=== PATIENT | male | born 1980 | race Caucasian/White ===

== ENCOUNTER 2020-06-28 04:08 | Observation (INO) ==
[2020-06-28] MEDS ORDERED: Ondansetron 4 MG/2 ML VIAL IVP PRN (06:29)
[2020-06-28] MEDS ORDERED: Naloxone 0.4 MG/ML INJ IVP PRN (06:29)
[2020-06-28] MEDS ORDERED: 0.9 % Sodium Chloride 1,000 ML IVC SCH (06:30)
[2020-06-28] MEDS: Cholecalciferol (D-3) 1,000 UNIT (25MCG) TABLET PO SCH (09:34)
[2020-06-28] MEDS: Tolterodine LA (24 HR) 4 MG CAP.ER.24H PO SCH (09:34)
[2020-06-28] MEDS: clonazePAM 1 MG TABLET PO SCH ×2 (09:34→22:18)
[2020-06-28] MEDS: ARIPiprazole 2 MG TABLET PO SCH (09:34)
[2020-06-28] MEDS: Baclofen 10 MG TABLET PO SCH ×3 (09:34→22:18)
[2020-06-28] MEDS: Gabapentin 400 MG CAPSULE PO SCH ×3 (09:35→19:57)
[2020-06-28] MEDS: ALPRAZolam 1 MG TABLET PO SCH ×2 (09:35→22:18)
[2020-06-28] MEDS: Multivit/Ca/Min/Fe/FA 1 TAB TABLET PO SCH (09:35)
[2020-06-28] MEDS: cefTRIAXone 1,000 MG in Water for inj. (sterile) 10 ML IVP SCH (09:35)
[2020-06-28] MEDS ORDERED: Acetaminophen 325 MG TABLET PO PRN (14:15)
[2020-06-28 16:34] LABS: Basophils % 0.4 %; Eosinophils # 0.2 K/mcL (0.0-0.6); Eosinophils % 1.4 %; Hematocrit 38.4 % (37.5-50.1); Hemoglobin 11.6 g/dL (12.9-16.9); Immature Granulocytes % 0.4 % (0-4); Lymphocytes % 28.2 %; Mean Corpuscular HGB Conc 30.2 g/dL (31.6-35.5); Mean Corpuscular Hemoglobin 26.5 pg (28.0-33.3); Mean Corpuscular Volume 87.7 fL (83.0-100.0); Mean Platelet Volume 9.9 fL (9.4-12.4); Monocytes # 0.9 K/mcL (0.0-1.3); Monocytes % 8.2 %; Neutrophils # 6.6 K/mcL (1.6-8.9); Platelet Count 219 K/mcL (140-400); Red Blood Count 4.38 M/mcL (4.19-5.50); Segmented Neutrophils % 61.4 %; White Blood Count 10.7 K/mcL (4.3-11.1)
[2020-06-28 16:52] LABS: BUN/Creatinine Ratio 47 (6-26); Blood Urea Nitrogen 15 mg/dL (6-20); Calcium 8.8 mg/dL (8.6-10.3); Carbon Dioxide 23 mEq/L (23-29); Chloride 109 mEq/L (98-107); Glucose 86 mg/dL (70-105); Magnesium 1.8 mg/dL (1.6-2.6); Osmolality,Calculated 286 (280-300); Phosphorous 3.5 mg/dL (2.7-4.5); Potassium 3.6 mEq/L (3.5-5.1); Sodium 138 mEq/L (136-145); eGFR For African Americans > 60 (> 60); eGFR For Non-African Americans > 60 (> 60)
[2020-06-28] MEDS: *HR* Heparin 5,000 UNIT/ML VIAL SQ SCH (19:57)
[2020-06-28] MEDS: Melatonin 3 MG TABLET PO SCH (22:18)
[2020-06-29 01:52] LABS: Hematocrit 34.5 % (37.5-50.1); Hemoglobin 10.9 g/dL (12.9-16.9); Mean Corpuscular HGB Conc 31.6 g/dL (31.6-35.5); Mean Corpuscular Hemoglobin 27.2 pg (28.0-33.3); Mean Platelet Volume 10.4 fL (9.4-12.4); Platelet Count 212 K/mcL (140-400); Red Blood Count 4.01 M/mcL (4.19-5.50); Red Cell Distribution Width 15.2 % (11.5-14.5); White Blood Count 8.5 K/mcL (4.3-11.1)
[2020-06-29 02:10] LABS: Magnesium 1.8 mg/dL (1.6-2.6); Phosphorous 3.4 mg/dL (2.7-4.5)
[2020-06-29 02:13] LABS: Alanine Aminotransferase 52 Units/L (7-52); Albumin 3.3 g/dL (3.5-5.7); Albumin/Globulin Ratio 1.2 (1.1-2.2); Alkaline Phosphatase 82 Units/L (34-104); Aspartate Amino Transferase 36 Units/L (13-39); BUN/Creatinine Ratio 39 (6-26); Bilirubin,Total 0.4 mg/dL (0.3-1.0); Blood Urea Nitrogen 15 mg/dL (6-20); Calcium 8.6 mg/dL (8.6-10.3); Carbon Dioxide 24 mEq/L (23-29); Chloride 109 mEq/L (98-107); Globulin 2.8 g/dL (2.4-3.5); Glucose 86 mg/dL (70-105); Osmolality,Calculated 288 (280-300); Potassium 3.8 mEq/L (3.5-5.1); Sodium 139 mEq/L (136-145); Total Protein 6.1 g/dL (6.4-8.9); eGFR For African Americans > 60 (> 60); eGFR For Non-African Americans > 60 (> 60)
[2020-06-29] MEDS: *HR* Heparin 5,000 UNIT/ML VIAL SQ SCH ×2 (04:53→16:20)
[2020-06-29] MEDS: ARIPiprazole 2 MG TABLET PO SCH (09:15)
[2020-06-29] MEDS: Cholecalciferol (D-3) 1,000 UNIT (25MCG) TABLET PO SCH (09:15)
[2020-06-29] MEDS: Tolterodine LA (24 HR) 4 MG CAP.ER.24H PO SCH (09:15)
[2020-06-29] MEDS: Gabapentin 400 MG CAPSULE PO SCH (09:15)
[2020-06-29] MEDS: Multivit/Ca/Min/Fe/FA 1 TAB TABLET PO SCH (09:15)
[2020-06-29] MEDS: ALPRAZolam 1 MG TABLET PO SCH ×2 (09:15→22:31)
[2020-06-29] MEDS: Baclofen 10 MG TABLET PO SCH ×3 (09:15→20:25)
[2020-06-29] MEDS: clonazePAM 1 MG TABLET PO SCH ×2 (09:17→20:25)
[2020-06-29] MEDS: cefTRIAXone 1,000 MG in Water for inj. (sterile) 10 ML IVP SCH (09:26)
[2020-06-29] MEDS: Sennosides/Docusate Sodium TABLET PO SCH ×2 (10:00→20:26)
[2020-06-29 10:34] LABS: % Iron Saturation 11 % (20-55); Iron 32 mcg/dL (65-175); Transferrin 211 mg/dL (203-362)
[2020-06-29 10:52] LABS: Ferritin 58 ng/mL (20-250)
[2020-06-29 12:00] LABS: Folate 10.9 ng/mL (3.0-16.0)
[2020-06-29] MEDS: Gabapentin 300 MG CAPSULE PO SCH ×2 (15:19→20:21)
[2020-06-29] MEDS: Ampicillin/Sulbactam 3,000 MG in 0.9 % Sodium Chloride Mini Bag 100 ML IVPB SCH ×3 (16:20→23:08)
[2020-06-29] MEDS: Nicotine 21 MG PATCH.TD24 TD SCH (16:20)
[2020-06-29] MEDS: Melatonin 3 MG TABLET PO SCH (20:26)
[2020-06-30] MEDS ORDERED: Acetaminophen IV 1,000 MG/100 ML INFUS..BTL IVPB ONE (00:44)
[2020-06-30 06:25] LABS: Basophils % 0.4 %; Eosinophils # 0.3 K/mcL (0.0-0.6); Hematocrit 37.6 % (37.5-50.1); Immature Granulocytes % 0.1 % (0-4); Lymphocytes # 2.7 K/mcL (0.6-4.6); Lymphocytes % 36.6 %; Mean Corpuscular HGB Conc 31.9 g/dL (31.6-35.5); Mean Corpuscular Hemoglobin 27.3 pg (28.0-33.3); Mean Corpuscular Volume 85.6 fL (83.0-100.0); Mean Platelet Volume 10.2 fL (9.4-12.4); Monocytes # 0.7 K/mcL (0.0-1.3); Monocytes % 9.6 %; Neutrophils # 3.6 K/mcL (1.6-8.9); Platelet Count 232 K/mcL (140-400); Red Blood Count 4.39 M/mcL (4.19-5.50); Red Cell Distribution Width 14.9 % (11.5-14.5); Segmented Neutrophils % 49.3 %; White Blood Count 7.3 K/mcL (4.3-11.1)
[2020-06-30] MEDS: *HR* Heparin 5,000 UNIT/ML VIAL SQ SCH (06:42)
[2020-06-30] MEDS: Ampicillin/Sulbactam 3,000 MG in 0.9 % Sodium Chloride Mini Bag 100 ML IVPB SCH ×2 (06:42→13:28)
[2020-06-30] MEDS: Baclofen 10 MG TABLET PO SCH ×2 (08:05→14:48)
[2020-06-30] MEDS: Nicotine 21 MG PATCH.TD24 TD SCH (08:05)
[2020-06-30] MEDS: Tolterodine LA (24 HR) 4 MG CAP.ER.24H PO SCH (08:06)
[2020-06-30] MEDS: Cholecalciferol (D-3) 1,000 UNIT (25MCG) TABLET PO SCH (08:06)
[2020-06-30] MEDS: cefTRIAXone 1,000 MG in Water for inj. (sterile) 10 ML IVP SCH (08:06)
[2020-06-30] MEDS: ALPRAZolam 1 MG TABLET PO SCH (08:06)
[2020-06-30] MEDS: Sennosides/Docusate Sodium TABLET PO SCH (08:06)
[2020-06-30] MEDS: Gabapentin 300 MG CAPSULE PO SCH ×2 (08:06→13:35)
[2020-06-30] MEDS: clonazePAM 1 MG TABLET PO SCH (08:06)
[2020-06-30] MEDS: ARIPiprazole 2 MG TABLET PO SCH (08:06)
[2020-06-30] MEDS: Multivit/Ca/Min/Fe/FA 1 TAB TABLET PO SCH (08:06)
[2020-06-30 11:15] VITALS: BP 104/69
== END 2020-06-30 15:58 ==
LOC: 3BNU → SUATTDRO 06:00
PROVIDERS: ADMIT Student in an Organized Health Care Education/Training Program; ATTEND Internal Medicine

== ENCOUNTER 2020-10-03 12:06 | Inpatient (IN) ==
[2020-10-03] MEDS ORDERED: 0.9 % Sodium Chloride 1,000 ML IVC STA ×2 (12:26→14:30)
[2020-10-03 12:51] LABS: Bacteria,Urine Few per hpf (None-Few); Bilirubin,Urine Negative (Negative); Blood,Urine Small (Negative); Clarity,Urine Ex.Turbid (Clear); Color,Urine Yellow (Yellow); Glucose,Urine (UA) Normal (Normal); Ketones,Urine Negative (Negative); Leukocyte Esterase,Urine Large (Negative); Mucus,Urine Few per lpf (None-Few); Nitrite,Urine Negative (Negative); Protein,Urine 100 mg/dL (Neg-Trace); RBC,Urine 15-30 per hpf (0-3); Specific Gravity,Urine > 1.030 (1.010-1.025); Squamous Epithelial Cell,Urine Few per hpf (None-Few); WBC,Urine TNTC per hpf (0-3)
[2020-10-03 13:25] LABS: Basophils # 0.1 K/mcL (0.0-0.2); Basophils % 0.3 %; Eosinophils # 0.1 K/mcL (0.0-0.6); Eosinophils % 0.4 %; Hematocrit 38.7 % (37.5-50.1); Hemoglobin 12.5 g/dL (12.9-16.9); Immature Granulocytes % 0.5 % (0-4); Lymphocytes # 2.9 K/mcL (0.6-4.6); Lymphocytes % 15.6 %; Mean Corpuscular HGB Conc 32.3 g/dL (31.6-35.5); Mean Corpuscular Hemoglobin 27.7 pg (28.0-33.3); Mean Corpuscular Volume 85.8 fL (83.0-100.0); Mean Platelet Volume 10.8 fL (9.4-12.4); Monocytes % 10.7 %; Neutrophils # 13.3 K/mcL (1.6-8.9); Platelet Count 191 K/mcL (140-400); Red Blood Count 4.51 M/mcL (4.19-5.50); Red Cell Distribution Width 14.1 % (11.5-14.5); Segmented Neutrophils % 72.5 %; White Blood Count 18.3 K/mcL (4.3-11.1)
[2020-10-03 13:44] LABS: Alanine Aminotransferase 25 Units/L (7-52); Albumin/Globulin Ratio 1.2 (1.1-2.2); Alkaline Phosphatase 104 Units/L (34-104); Aspartate Amino Transferase 22 Units/L (13-39); BUN/Creatinine Ratio 25 (6-26); Bilirubin,Direct 0.1 mg/dL (0.0-0.2); Bilirubin,Indirect 0.3 mg/dL (0.0-1.0); Bilirubin,Total 0.4 mg/dL (0.3-1.0); Blood Urea Nitrogen 15 mg/dL (6-20); Calcium 8.8 mg/dL (8.6-10.3); Carbon Dioxide 22 mEq/L (23-29); Chloride 103 mEq/L (98-107); Globulin 3.3 g/dL (2.4-3.5); Glucose 115 mg/dL (70-105); Lipase 13 Units/L (11-82); Osmolality,Calculated 280 (280-300); Potassium 3.2 mEq/L (3.5-5.1); Sodium 134 mEq/L (136-145); Total Protein 7.3 g/dL (6.4-8.9); eGFR For African Americans > 60 (> 60); eGFR For Non-African Americans > 60 (> 60)
[2020-10-03] MEDS ORDERED: Piperacillin/Tazobactam 3.375 GM in 0.9 % Sodium Chloride Mini Bag 100 ML IVPB ONE (14:00)
[2020-10-03 14:34] LABS: Adenovirus Not Detected (Not Detect); Bordetella Pertussis Not Detected (Not Detect); Chlamydophila pneumoniae Not Detected (Not Detect); Coronavirus 229E Not Detected (Not Detect); Coronavirus HKU1 Not Detected (Not Detect); Coronavirus NL63 Not Detected (Not Detect); Coronavirus OC43 Not Detected (Not Detect); Human Metapneumovirus Not Detected (Not Detect); Human Rhinovirus/Enterovirus Not Detected (Not Detect); Influenza A Subtype 2009 H1 Not Detected (Not Detect); Influenza B Not Detected (Not Detect); Mycoplasma pneumoniae Not Detected (Not Detect); Parainfluenza Virus 1 Not Detected (Not Detect); Parainfluenza Virus 2 Not Detected (Not Detect); Parainfluenza Virus 3 Not Detected (Not Detect); Parainfluenza Virus 4 Not Detected (Not Detect); Respiratory Syncytial Virus Not Detected (Not Detect); SARS-CoV-2 Not Detected (Not Detect)
[2020-10-03] MEDS ORDERED: Naloxone 0.4 MG/ML INJ IVP PRN (15:15)
[2020-10-03] MEDS ORDERED: 0.9 % Sodium Chloride 500 ML IVC ONE (16:01)
[2020-10-03 16:15] LABS: Magnesium 1.7 mg/dL (1.6-2.6); Phosphorous 2.9 mg/dL (2.7-4.5)
[2020-10-03] MEDS: Gabapentin 400 MG CAPSULE PO SCH (20:00)
[2020-10-03] MEDS: ALPRAZolam 1 MG TABLET PO SCH (20:00)
[2020-10-03] MEDS: Sennosides 8.6 MG TABLET PO SCH (20:00)
[2020-10-03] MEDS: Baclofen 10 MG TABLET PO SCH (20:00)
[2020-10-03] MEDS: Piperacillin/Tazobactam 3.375 GM in 0.9 % Sodium Chloride Mini Bag 100 ML IVPB SCH (20:00)
[2020-10-03] MEDS ORDERED: Ketorolac 15 MG/ML VIAL IVP ONE (23:24)
[2020-10-03] MEDS: Ondansetron 4 MG/2 ML VIAL IVP PRN (23:59)
[2020-10-04] MEDS ORDERED: Acetaminophen IV 500 MG/50 ML BAG IVPB ONE (00:52)
[2020-10-04] MEDS: Vancomycin 1,250 MG/262.5 ML IV.SOLN IVPB SCH ×2 (02:29→12:53)
[2020-10-04 02:37] LABS: Basophils % 0.2 %; Eosinophils % 0.2 %; Hematocrit 37.3 % (37.5-50.1); Hemoglobin 12.4 g/dL (12.9-16.9); Immature Granulocytes % 0.2 % (0-4); Lymphocytes # 1.7 K/mcL (0.6-4.6); Lymphocytes % 13.6 %; Mean Corpuscular HGB Conc 33.2 g/dL (31.6-35.5); Mean Corpuscular Hemoglobin 28.6 pg (28.0-33.3); Mean Corpuscular Volume 85.9 fL (83.0-100.0); Mean Platelet Volume 10.8 fL (9.4-12.4); Monocytes # 1.3 K/mcL (0.0-1.3); Monocytes % 10.3 %; Neutrophils # 9.5 K/mcL (1.6-8.9); Platelet Count 169 K/mcL (140-400); Red Blood Count 4.34 M/mcL (4.19-5.50); Red Cell Distribution Width 14.2 % (11.5-14.5); Segmented Neutrophils % 75.5 %; White Blood Count 12.6 K/mcL (4.3-11.1)
[2020-10-04 02:54] LABS: BUN/Creatinine Ratio 18 (6-26); Blood Urea Nitrogen 10 mg/dL (6-20); Calcium 8.5 mg/dL (8.6-10.3); Carbon Dioxide 20 mEq/L (23-29); Chloride 104 mEq/L (98-107); Glucose 114 mg/dL (70-105); Osmolality,Calculated 278 (280-300); Potassium 3.5 mEq/L (3.5-5.1); Sodium 134 mEq/L (136-145); eGFR For African Americans > 60 (> 60); eGFR For Non-African Americans > 60 (> 60)
[2020-10-04] MEDS: Piperacillin/Tazobactam 3.375 GM in 0.9 % Sodium Chloride Mini Bag 100 ML IVPB SCH ×3 (04:34→20:03)
[2020-10-04] MEDS: Tolterodine LA (24 HR) 4 MG CAP.ER.24H PO SCH (08:20)
[2020-10-04] MEDS: Sennosides 8.6 MG TABLET PO SCH ×2 (08:21→20:03)
[2020-10-04] MEDS: ARIPiprazole 2 MG TABLET PO SCH (08:21)
[2020-10-04] MEDS: Gabapentin 400 MG CAPSULE PO SCH ×3 (08:21→20:03)
[2020-10-04] MEDS: Multivit/Ca/Min/Fe/FA 1 TAB TABLET PO SCH (08:21)
[2020-10-04] MEDS: Cholecalciferol (D-3) 1,000 UNIT (25MCG) TABLET PO SCH (08:21)
[2020-10-04] MEDS: Melatonin 3 MG TABLET PO SCH (08:21)
[2020-10-04] MEDS: Ascorbic Acid 500 MG TABLET PO SCH (08:21)
[2020-10-04] MEDS: Baclofen 10 MG TABLET PO SCH ×3 (08:21→20:03)
[2020-10-04] MEDS: ALPRAZolam 1 MG TABLET PO SCH ×2 (08:21→20:03)
[2020-10-04] MEDS: Acetaminophen 325 MG TABLET PO PRN (15:41)
[2020-10-04] MEDS: Ondansetron 4 MG/2 ML VIAL IVP PRN (16:17)
[2020-10-04] MEDS ORDERED: Ibuprofen 800 MG TABLET PO ONE (17:46)
[2020-10-05 01:18] LABS: Basophils % 0.4 %; Eosinophils # 0.2 K/mcL (0.0-0.6); Eosinophils % 2.2 %; Hemoglobin 12.2 g/dL (12.9-16.9); Immature Granulocytes % 0.1 % (0-4); Lymphocytes # 2.6 K/mcL (0.6-4.6); Lymphocytes % 26.2 %; Mean Corpuscular Hemoglobin 28.5 pg (28.0-33.3); Mean Corpuscular Volume 86.4 fL (83.0-100.0); Monocytes # 1.7 K/mcL (0.0-1.3); Neutrophils # 5.5 K/mcL (1.6-8.9); Platelet Count 164 K/mcL (140-400); Red Blood Count 4.28 M/mcL (4.19-5.50); Red Cell Distribution Width 14.5 % (11.5-14.5); Segmented Neutrophils % 54.1 %; White Blood Count 10.1 K/mcL (4.3-11.1)
[2020-10-05 01:33] LABS: BUN/Creatinine Ratio 13 (6-26); Blood Urea Nitrogen 6 mg/dL (6-20); Calcium 8.8 mg/dL (8.6-10.3); Carbon Dioxide 23 mEq/L (23-29); Chloride 107 mEq/L (98-107); Glucose 88 mg/dL (70-105); Osmolality,Calculated 285 (280-300); Potassium 3.5 mEq/L (3.5-5.1); Sodium 139 mEq/L (136-145); eGFR For African Americans > 60 (> 60); eGFR For Non-African Americans > 60 (> 60)
[2020-10-05] MEDS ORDERED: Vancomycin 1,250 MG/262.5 ML IV.SOLN IVPB SCH (02:00)
[2020-10-05] MEDS: Vancomycin 1,250 MG/262.5 ML IV.SOLN IVPB SCH ×3 (02:58→19:47)
[2020-10-05] MEDS: Piperacillin/Tazobactam 3.375 GM in 0.9 % Sodium Chloride Mini Bag 100 ML IVPB SCH ×3 (03:58→22:39)
[2020-10-05] MEDS: Ascorbic Acid 500 MG TABLET PO SCH (09:58)
[2020-10-05] MEDS: ALPRAZolam 1 MG TABLET PO SCH ×2 (09:58→20:02)
[2020-10-05] MEDS: Multivit/Ca/Min/Fe/FA 1 TAB TABLET PO SCH (09:58)
[2020-10-05] MEDS: Cholecalciferol (D-3) 1,000 UNIT (25MCG) TABLET PO SCH (09:58)
[2020-10-05] MEDS: Gabapentin 400 MG CAPSULE PO SCH ×3 (09:58→20:02)
[2020-10-05] MEDS: Sennosides 8.6 MG TABLET PO SCH ×2 (09:59→20:02)
[2020-10-05] MEDS: Tolterodine LA (24 HR) 4 MG CAP.ER.24H PO SCH (09:59)
[2020-10-05] MEDS: Melatonin 3 MG TABLET PO SCH ×2 (09:59→20:02)
[2020-10-05] MEDS: Baclofen 10 MG TABLET PO SCH ×3 (10:00→20:01)
[2020-10-05] MEDS: ARIPiprazole 2 MG TABLET PO SCH (10:30)
[2020-10-06] MEDS: Vancomycin 1,250 MG/262.5 ML IV.SOLN IVPB SCH ×2 (02:19→10:34)
[2020-10-06] MEDS: Piperacillin/Tazobactam 3.375 GM in 0.9 % Sodium Chloride Mini Bag 100 ML IVPB SCH ×3 (04:43→19:48)
[2020-10-06] MEDS: *HR* Enoxaparin 40 MG/0.4 ML SYRINGE SQ SCH (05:00)
[2020-10-06 07:02] LABS: Basophils % 0.3 %; Eosinophils # 0.1 K/mcL (0.0-0.6); Eosinophils % 1.9 %; Hematocrit 44.2 % (37.5-50.1); Hemoglobin 13.7 g/dL (12.9-16.9); Immature Granulocytes % 0.3 % (0-4); Lymphocytes # 2.5 K/mcL (0.6-4.6); Mean Corpuscular Hemoglobin 27.8 pg (28.0-33.3); Mean Corpuscular Volume 89.8 fL (83.0-100.0); Monocytes # 0.8 K/mcL (0.0-1.3); Monocytes % 12.2 %; Neutrophils # 3.3 K/mcL (1.6-8.9); Platelet Count 178 K/mcL (140-400); Red Blood Count 4.92 M/mcL (4.19-5.50); Red Cell Distribution Width 13.9 % (11.5-14.5); Segmented Neutrophils % 48.3 %; White Blood Count 6.8 K/mcL (4.3-11.1)
[2020-10-06] MEDS: ALPRAZolam 1 MG TABLET PO SCH ×2 (07:20→21:30)
[2020-10-06] MEDS: ARIPiprazole 2 MG TABLET PO SCH (07:20)
[2020-10-06] MEDS: Tolterodine LA (24 HR) 4 MG CAP.ER.24H PO SCH (07:20)
[2020-10-06] MEDS: Sennosides 8.6 MG TABLET PO SCH ×2 (07:20→21:39)
[2020-10-06] MEDS: Ascorbic Acid 500 MG TABLET PO SCH (07:20)
[2020-10-06] MEDS: Baclofen 10 MG TABLET PO SCH ×3 (07:20→21:30)
[2020-10-06] MEDS: Cholecalciferol (D-3) 1,000 UNIT (25MCG) TABLET PO SCH (07:20)
[2020-10-06] MEDS: Gabapentin 400 MG CAPSULE PO SCH ×3 (07:20→21:30)
[2020-10-06] MEDS: Multivit/Ca/Min/Fe/FA 1 TAB TABLET PO SCH (07:21)
[2020-10-06 07:22] LABS: BUN/Creatinine Ratio 11 (6-26); Blood Urea Nitrogen 5 mg/dL (6-20); Carbon Dioxide 24 mEq/L (23-29); Chloride 105 mEq/L (98-107); Glucose 103 mg/dL (70-105); Osmolality,Calculated 282 (280-300); Potassium 3.6 mEq/L (3.5-5.1); Sodium 137 mEq/L (136-145); eGFR For African Americans > 60 (> 60); eGFR For Non-African Americans > 60 (> 60)
[2020-10-06] MEDS ORDERED: 0.9 % Sodium Chloride 1,000 ML IVC ONE ×2 (10:57→15:28)
[2020-10-06] MEDS ORDERED: 0.9 % Sodium Chloride 1,000 ML ONE (15:31)
[2020-10-06] MEDS: Acetaminophen 325 MG TABLET PO PRN (15:33)
[2020-10-06] MEDS ORDERED: Acetaminophen 325 MG TABLET PO ONE (17:08)
[2020-10-06] MEDS: Melatonin 3 MG TABLET PO SCH (21:30)
[2020-10-07] MEDS: Acetaminophen 325 MG TABLET PO PRN (00:10)
[2020-10-07] MEDS: Piperacillin/Tazobactam 3.375 GM in 0.9 % Sodium Chloride Mini Bag 100 ML IVPB SCH ×3 (04:38→21:27)
[2020-10-07] MEDS: *HR* Enoxaparin 40 MG/0.4 ML SYRINGE SQ SCH (04:40)
[2020-10-07 04:58] LABS: Basophils % 0.2 %; Eosinophils # 0.1 K/mcL (0.0-0.6); Hematocrit 35.1 % (37.5-50.1); Immature Granulocytes % 0.2 % (0-4); Lymphocytes # 2.6 K/mcL (0.6-4.6); Lymphocytes % 20.4 %; Mean Corpuscular HGB Conc 32.8 g/dL (31.6-35.5); Mean Corpuscular Hemoglobin 28.2 pg (28.0-33.3); Mean Platelet Volume 10.6 fL (9.4-12.4); Monocytes # 1.7 K/mcL (0.0-1.3); Monocytes % 13.6 %; Neutrophils # 8.2 K/mcL (1.6-8.9); Platelet Count 210 K/mcL (140-400); Red Blood Count 4.08 M/mcL (4.19-5.50); Red Cell Distribution Width 13.9 % (11.5-14.5); Segmented Neutrophils % 64.6 %
[2020-10-07 05:00] LABS: Hemoglobin 11.5 g/dL (12.9-16.9); White Blood Count 12.7 K/mcL (4.3-11.1)
[2020-10-07 05:19] LABS: BUN/Creatinine Ratio 13 (6-26); Blood Urea Nitrogen 6 mg/dL (6-20); Calcium 8.2 mg/dL (8.6-10.3); Carbon Dioxide 22 mEq/L (23-29); Chloride 107 mEq/L (98-107); Glucose 113 mg/dL (70-105); Osmolality,Calculated 282 (280-300); Potassium 3.2 mEq/L (3.5-5.1); Sodium 137 mEq/L (136-145); eGFR For African Americans > 60 (> 60); eGFR For Non-African Americans > 60 (> 60)
[2020-10-07] MEDS: Multivit/Ca/Min/Fe/FA 1 TAB TABLET PO SCH (08:37)
[2020-10-07] MEDS: Gabapentin 400 MG CAPSULE PO SCH ×3 (08:37→21:22)
[2020-10-07] MEDS: Baclofen 10 MG TABLET PO SCH ×3 (08:38→21:22)
[2020-10-07] MEDS: ARIPiprazole 2 MG TABLET PO SCH (08:38)
[2020-10-07] MEDS: Cholecalciferol (D-3) 1,000 UNIT (25MCG) TABLET PO SCH (08:38)
[2020-10-07] MEDS: Sennosides 8.6 MG TABLET PO SCH ×2 (08:38→21:20)
[2020-10-07] MEDS: Tolterodine LA (24 HR) 4 MG CAP.ER.24H PO SCH (08:38)
[2020-10-07] MEDS: ALPRAZolam 1 MG TABLET PO SCH ×2 (08:38→21:22)
[2020-10-07] MEDS: Ascorbic Acid 500 MG TABLET PO SCH (08:38)
[2020-10-07] MEDS: Calcium Gluconate 1gm/50mL 1 GM/50 ML BAG IVPB SCH ×2 (09:53→10:49)
[2020-10-07] MEDS: Melatonin 3 MG TABLET PO SCH (21:22)
[2020-10-08] MEDS: Piperacillin/Tazobactam 3.375 GM in 0.9 % Sodium Chloride Mini Bag 100 ML IVPB SCH ×2 (04:06→12:07)
[2020-10-08 04:26] LABS: Basophils # 0.1 K/mcL (0.0-0.2); Basophils % 0.5 %; Eosinophils # 0.6 K/mcL (0.0-0.6); Eosinophils % 5.9 %; Hematocrit 35.6 % (37.5-50.1); Hemoglobin 11.6 g/dL (12.9-16.9); Immature Granulocytes % 0.4 % (0-4); Lymphocytes # 2.6 K/mcL (0.6-4.6); Lymphocytes % 23.5 %; Mean Corpuscular HGB Conc 32.6 g/dL (31.6-35.5); Mean Corpuscular Hemoglobin 27.6 pg (28.0-33.3); Mean Corpuscular Volume 84.8 fL (83.0-100.0); Mean Platelet Volume 9.9 fL (9.4-12.4); Monocytes % 9.1 %; Neutrophils # 6.6 K/mcL (1.6-8.9); Platelet Count 245 K/mcL (140-400); Segmented Neutrophils % 60.6 %; White Blood Count 10.9 K/mcL (4.3-11.1)
[2020-10-08 04:44] LABS: Alanine Aminotransferase 12 Units/L (7-52); Albumin 3.6 g/dL (3.5-5.7); Albumin/Globulin Ratio 1.1 (1.1-2.2); Alkaline Phosphatase 67 Units/L (34-104); Aspartate Amino Transferase 13 Units/L (13-39); BUN/Creatinine Ratio 13 (6-26); Bilirubin,Total 0.4 mg/dL (0.3-1.0); Blood Urea Nitrogen 5 mg/dL (6-20); Calcium 8.7 mg/dL (8.6-10.3); Carbon Dioxide 25 mEq/L (23-29); Chloride 107 mEq/L (98-107); Globulin 3.4 g/dL (2.4-3.5); Glucose 85 mg/dL (70-105); Osmolality,Calculated 283 (280-300); Phosphorous 3.8 mg/dL (2.7-4.5); Potassium 3.8 mEq/L (3.5-5.1); Sodium 138 mEq/L (136-145); eGFR For African Americans > 60 (> 60); eGFR For Non-African Americans > 60 (> 60)
[2020-10-08 04:45] LABS: % Iron Saturation 6 % (20-55); Iron 16 mcg/dL (65-175); Transferrin 194 mg/dL (203-362)
[2020-10-08 05:04] LABS: Ferritin 123 ng/mL (20-250)
[2020-10-08 05:11] LABS: Folate > 22.3 ng/mL (3.0-16.0); Vitamin B12 539 pg/mL (250-1100)
[2020-10-08] MEDS: *HR* Enoxaparin 40 MG/0.4 ML SYRINGE SQ SCH (05:47)
[2020-10-08] MEDS: Tolterodine LA (24 HR) 4 MG CAP.ER.24H PO SCH (08:19)
[2020-10-08] MEDS: ARIPiprazole 2 MG TABLET PO SCH (08:19)
[2020-10-08] MEDS: Cholecalciferol (D-3) 1,000 UNIT (25MCG) TABLET PO SCH (08:20)
[2020-10-08] MEDS: Sennosides 8.6 MG TABLET PO SCH (08:20)
[2020-10-08] MEDS: Gabapentin 400 MG CAPSULE PO SCH ×2 (08:20→16:00)
[2020-10-08] MEDS: Baclofen 10 MG TABLET PO SCH ×2 (08:20→16:00)
[2020-10-08] MEDS: Multivit/Ca/Min/Fe/FA 1 TAB TABLET PO SCH (08:20)
[2020-10-08] MEDS: Ascorbic Acid 500 MG TABLET PO SCH (08:20)
[2020-10-08] MEDS: ALPRAZolam 1 MG TABLET PO SCH (08:20)
[2020-10-08] MEDS ORDERED: Nicotine 7 MG PATCH.TD24 TD SCH (09:00)
[2020-10-08] MEDS ORDERED: Lidocaine -MPF 2% 2 ML VIAL ONE (10:47)
[2020-10-08] MEDS ORDERED: Ondansetron 4 MG/2 ML VIAL ONE (12:05)
[2020-10-08 12:43] VITALS: BP 101/63
[2020-10-08 13:04] LABS: Adenovirus Not Detected (Not Detect); Bordetella Pertussis Not Detected (Not Detect); Chlamydophila pneumoniae Not Detected (Not Detect); Coronavirus 229E Not Detected (Not Detect); Coronavirus HKU1 Not Detected (Not Detect); Coronavirus NL63 Not Detected (Not Detect); Coronavirus OC43 Not Detected (Not Detect); Human Metapneumovirus Not Detected (Not Detect); Human Rhinovirus/Enterovirus Not Detected (Not Detect); Influenza A Subtype 2009 H1 Not Detected (Not Detect); Influenza B Not Detected (Not Detect); Mycoplasma pneumoniae Not Detected (Not Detect); Parainfluenza Virus 1 Not Detected (Not Detect); Parainfluenza Virus 2 Not Detected (Not Detect); Parainfluenza Virus 3 Not Detected (Not Detect); Parainfluenza Virus 4 Not Detected (Not Detect); Respiratory Syncytial Virus Not Detected (Not Detect); SARS-CoV-2 Not Detected (Not Detect)
== END 2020-10-08 16:13 | DRG 466 ==
LOC: 2ANU 12:06 → EMEROOARM 12:06 → SUATTDRO 15:05 → 2ANU 16:28 → SUATTDRO 10-05 15:46
PROVIDERS: ADMIT Student in an Organized Health Care Education/Training Program; ATTEND Internal Medicine